=== PATIENT | male | born 1945 | race Two or more races ===

== ENCOUNTER 2025-03-19 13:12 | Inpatient (IN) | payer MEDICARE, OTHER ==
[~2025-03-19] VITALS: Ht 170.2 cm; Wt 66.7 kg
[2025-03-19 14:43] LABS: BASOPHILS # (AUTO) 0.1 K/uL (0.0-0.2); BASOPHILS % (AUTO) 0.8 % (0.0-2.0); EOSINOPHILS # (AUTO) 0.3 K/uL (0.0-0.7); EOSINOPHILS % (AUTO) 3.2 % (0.0-6.0); HEMATOCRIT 36 % (39-51); HEMOGLOBIN 11.5 g/dL (13.5-17.5); LYMPHOCYTES # (AUTO) 1.9 K/uL (0.8-4.8); LYMPHOCYTES % (AUTO) 17.5 % (20.0-44.0); MEAN CORPUSCULAR HEMOGLOBIN 30 PG (26.0-33.0); MEAN CORPUSCULAR HGB CONC 32 g/dl (31.0-36.0); MEAN CORPUSCULAR VOLUME 94 fL (80-96); MONOCYTES % (AUTO) 9.4 % (2.0-12.0); NEUTROPHILS # (AUTO) 7.4 K/uL (1.8-8.9); NEUTROPHILS % (AUTO) 69.1 % (43.0-81.0); PLATELET COUNT (AUTO) 93 K/uL (150-450); RED BLOOD CELL COUNT(AUTO) 3.81 MIL/uL (4.5-6.0); RED CELL DISTRIBUTION WIDTH 18.2 % (11.5-15.0); WHITE BLOOD COUNT (AUTO) 10.7 K/uL (4.3-11.0)
[2025-03-19 14:51] LABS: CALCIUM, SERUM 8.3 mg/dL (8.5-10.1); CARBON DIOXIDE 22 mmol/L (21-32); CHLORIDE 107 mmol/L (98-107); CREATININE 7.2 mg/dL (0.6-1.3); GLUCOSE 110 mg/dL (74-106); POTASSIUM 5.4 mmol/L (3.5-5.1); SODIUM SERUM 138 mmol/L (136-145)
[2025-03-19 14:53] LABS: UREA NITROGEN, BLOOD 82 mg/dL (7-18)
[2025-03-19] MEDS ORDERED: DONE10TA44 PO (15:05)
[2025-03-19] MEDS ORDERED: FOLI0.8T23 PO (15:05)
[2025-03-19] MEDS ORDERED: SENN-261 PO (15:05)
[2025-03-19] MEDS ORDERED: INSU100V7 SQ ×2 (15:05)
[2025-03-19] MEDS ORDERED: METO25TA6 PO (15:05)
[2025-03-19] MEDS ORDERED: TRAM50TA2 PO (15:05)
[2025-03-19] MEDS ORDERED: SACC250C9 PO (15:05)
[2025-03-19] MEDS ORDERED: LIDO5CRE7 TP (15:05)
[2025-03-19] MEDS ORDERED: ACET325T53 PO (15:05)
[2025-03-19] MEDS ORDERED: ATOR40TA PO (15:05)
[2025-03-19] MEDS ORDERED: APIX2.5T PO (15:05)
[2025-03-19] MEDS ORDERED: INSU100V39 SQ (15:05)
[2025-03-19] MEDS ORDERED: BUSP5TAB3 PO (15:05)
[2025-03-19] MEDS ORDERED: CITA20TA16 PO (15:05)
[2025-03-19] MEDS ORDERED: PREG200C59 PO (15:05)
[2025-03-19 17:10] LABS: NT-PRO BNP > 25000 pg/mL (0-125)
[2025-03-19] MEDS ORDERED: Z GUARD REMEDY 4 OZ OINT TP PRN (17:30)
[2025-03-19] MEDS ORDERED: ONDANSETRON HCL/PF 4 MG/2 ML VIAL IVP PRN (17:30)
[2025-03-19] MEDS ORDERED: ACETAMINOPHEN 325 MG TABLET PO PRN (18:00)
[2025-03-19] MEDS ORDERED: TRAMADOL HCL 50 MG TABLET PO PRN (18:00)
[2025-03-19 19:50] LABS: ANISOCYTOSIS 1+; BASOPHILS % (MANUAL) 1 % (0.0-2.0); EOSINOPHILS % (MANUAL) 1 % (0-4); LYMPHOCYTES % (MANUAL) 14 % (16-48); MONOCYTES % (MANUAL) 5 % (0-11.0); NEUTROPHILS % (MANUAL) 79 (42-76); PLATELET ESTIMATE DECREASED
[2025-03-19 19:51] LABS: OVALOCYTES 1+
[2025-03-19 20:00] VITALS: BP 178/71; TEMP 97.5; O2SAT 99
[2025-03-19] MEDS: CITALOPRAM HYDROBROMIDE 20 MG TABLET PO SCH (20:02)
[2025-03-19] MEDS: busPIRone 5 MG TABLET PO SCH (20:02)
[2025-03-19] MEDS: APIXABAN 2.5 MG TABLET PO SCH (20:04)
[2025-03-19] MEDS ORDERED: ALBUTEROL FS 2.5 MG/3 ML VIAL.NEB NEB PRN (22:30)
[2025-03-19] MEDS: ATORVASTATIN 40 MG TABLET PO SCH (22:52)
[2025-03-19] MEDS: DONEPEZIL 5 MG TABLET PO SCH (22:52)
[2025-03-19] MEDS: SENNOSIDES 8.6 MG TABLET PO SCH (22:53)
[2025-03-19] MEDS: ALBUTEROL FS 2.5 MG/3 ML VIAL.NEB NEB PRN (23:21)
[2025-03-19 23:22] VITALS: O2SAT 97
[2025-03-19 23:37] VITALS: O2SAT 99
[2025-03-19] MEDS: INSULIN GLARGINE, 100 UNIT/ML CARTRIDGE SQ SCH (23:41)
[2025-03-20] VITALS: BP 126/46; TEMP 98.1; O2SAT 96
[2025-03-20 04:00] VITALS: BP 128/54; TEMP 98.1; O2SAT 99
[2025-03-20 06:59] LABS: BASOPHILS % (AUTO) 0.4 % (0.0-2.0); EOSINOPHILS # (AUTO) 0.2 K/uL (0.0-0.7); HEMATOCRIT 36 % (39-51); HEMOGLOBIN 11.6 g/dL (13.5-17.5); LYMPHOCYTES # (AUTO) 1.4 K/uL (0.8-4.8); LYMPHOCYTES % (AUTO) 14.6 % (20.0-44.0); MEAN CORPUSCULAR HEMOGLOBIN 30 PG (26.0-33.0); MEAN CORPUSCULAR HGB CONC 32 g/dl (31.0-36.0); MEAN CORPUSCULAR VOLUME 93 fL (80-96); MONOCYTES # (AUTO) 0.9 K/uL (0.1-1.30); MONOCYTES % (AUTO) 8.8 % (2.0-12.0); NEUTROPHILS # (AUTO) 7.3 K/uL (1.8-8.9); NEUTROPHILS % (AUTO) 74.2 % (43.0-81.0); PLATELET COUNT (AUTO) 94 K/uL (150-450); RED BLOOD CELL COUNT(AUTO) 3.88 MIL/uL (4.5-6.0); RED CELL DISTRIBUTION WIDTH 17.8 % (11.5-15.0); WHITE BLOOD COUNT (AUTO) 9.8 K/uL (4.3-11.0)
[2025-03-20 07:05] LABS: CALCIUM, SERUM 8.1 mg/dL (8.5-10.1); MAGNESIUM 1.9 mg/dL (1.8-2.4); PHOSPHORUS 6.5 mg/dL (2.5-4.9)
[2025-03-20 07:22] LABS: CREATININE 7.1 mg/dL (0.6-1.3)
[2025-03-20 07:36] LABS: POTASSIUM 6.3 mmol/L (3.5-5.1)
[2025-03-20 08:00] VITALS: BP 146/57; TEMP 97.7; O2SAT 98
[2025-03-20] MEDS: PREGABALIN 100 MG CAPSULE PO SCH (08:12)
[2025-03-20] MEDS: METOPROLOL TARTRATE 25 MG TABLET PO SCH (08:13)
[2025-03-20] MEDS: INSULIN GLARGINE, 100 UNIT/ML CARTRIDGE SQ SCH (10:05)
[2025-03-20 10:44] LABS: EOSINOPHILS % (MANUAL) 3 % (0-4); LYMPHOCYTES % (MANUAL) 13 % (16-48); MONOCYTES % (MANUAL) 5 % (0-11.0); NEUTROPHILS % (MANUAL) 79 (42-76)
[2025-03-20 11:25] LABS: PLATELET ESTIMATE DECREASED
[2025-03-20] MEDS: SODIUM ZIRCONIUM CYCLOSILICATE 10 GM POWD.PACK PO ONE (11:49)
[2025-03-20 12:00] VITALS: BP 146/54; TEMP 97.5; O2SAT 98
[2025-03-20 16:00] VITALS: BP 160/48; TEMP 97.9; O2SAT 100
[2025-03-20 20:00] VITALS: BP 123/55; TEMP 97.9; O2SAT 98
[2025-03-21] VITALS: BP 132/49; TEMP 97.8; O2SAT 99
[2025-03-21 04:00] VITALS: BP 116/49; TEMP 97.3; O2SAT 99
[2025-03-21 08:00] VITALS: BP 111/68; TEMP 97.5; O2SAT 97
[2025-03-21 08:08] LABS: HEPATITIS B CORE AB, TOTAL Negative (Negative); HEPATITIS B SURFACE AB (QUAL) Reactive (.)
[2025-03-21] MEDS: DEXTROSE 50%-WATER 50 ML DISP.SYRIN IVP ONE (10:23)
[2025-03-21 12:00] VITALS: BP 111/68; TEMP 97.5; O2SAT 97
[2025-03-21 14:19] LABS: BILIRUBIN,TOTAL 1.3 mg/dL (0.2-1.0); CALCIUM, SERUM 7.8 mg/dL (8.5-10.1); CREATININE 6.1 mg/dL (0.6-1.3); PHOSPHORUS 6.2 mg/dL (2.5-4.9); POTASSIUM 4.2 mmol/L (3.5-5.1); TOTAL PROTEIN, SERUM 7.9 g/dL (6.4-8.2)
[2025-03-21 15:40] LABS: BASOPHILS # (AUTO) 0.1 K/uL (0.0-0.2); BASOPHILS % (AUTO) 0.6 % (0.0-2.0); EOSINOPHILS # (AUTO) 0.1 K/uL (0.0-0.7); EOSINOPHILS % (AUTO) 1.6 % (0.0-6.0); HEMATOCRIT 35 % (39-51); HEMOGLOBIN 11.5 g/dL (13.5-17.5); LYMPHOCYTES # (AUTO) 1.4 K/uL (0.8-4.8); LYMPHOCYTES % (AUTO) 15.6 % (20.0-44.0); MEAN CORPUSCULAR HEMOGLOBIN 30 PG (26.0-33.0); MEAN CORPUSCULAR HGB CONC 33 g/dl (31.0-36.0); MEAN CORPUSCULAR VOLUME 93 fL (80-96); MONOCYTES # (AUTO) 0.8 K/uL (0.1-1.30); MONOCYTES % (AUTO) 9.1 % (2.0-12.0); NEUTROPHILS # (AUTO) 6.6 K/uL (1.8-8.9); NEUTROPHILS % (AUTO) 73.1 % (43.0-81.0); PLATELET COUNT (AUTO) 80 K/uL (150-450); RED BLOOD CELL COUNT(AUTO) 3.81 MIL/uL (4.5-6.0); RED CELL DISTRIBUTION WIDTH 17.9 % (11.5-15.0); WHITE BLOOD COUNT (AUTO) 9.1 K/uL (4.3-11.0)
[2025-03-21 16:00] VITALS: BP 139/47; TEMP 97.3; O2SAT 98
[2025-03-21 18:02] LABS: NEUTROPHILS % (MANUAL) 76 (42-76)
[2025-03-21 18:03] LABS: EOSINOPHILS % (MANUAL) 3 % (0-4); LYMPHOCYTES % (MANUAL) 17 % (16-48); MONOCYTES % (MANUAL) 4 % (0-11.0); PLATELET ESTIMATE DECREASED
[2025-03-21 20:00] VITALS: BP 108/58; TEMP 98.1; O2SAT 99
[2025-03-21] MEDS: ACETAMINOPHEN 325 MG TABLET PO PRN (23:51)
[2025-03-22] VITALS: BP 121/66; TEMP 97.7; O2SAT 100
[2025-03-22] MEDS: MAG HYDROX/AL HYDROX/SIMETH 30 ML UDC PO PRN (03:44)
[2025-03-22 04:00] VITALS: BP 117/50; TEMP 97.5; O2SAT 100
[2025-03-22 08:00] VITALS: BP 123/55; TEMP 97.5; O2SAT 98
[2025-03-22 12:00] VITALS: BP 130/44; TEMP 97.5; O2SAT 100
[2025-03-22 16:00] VITALS: BP 141/42; TEMP 97.7; O2SAT 100
[2025-03-22 22:00] VITALS: BP 140/54; TEMP 97.7; O2SAT 100
[2025-03-23] VITALS: BP 126/53; TEMP 97.7; O2SAT 100
[2025-03-23 04:00] VITALS: BP 117/50; TEMP 97.7; O2SAT 100
[2025-03-23 08:00] VITALS: BP 118/66; TEMP 97.9; O2SAT 100
[2025-03-23 12:00] VITALS: BP 102/49; TEMP 97.6; O2SAT 100
[2025-03-23 16:00] VITALS: BP 127/68; TEMP 97.5; O2SAT 100
[2025-03-23 20:00] VITALS: BP 129/48; TEMP 97.7; O2SAT 100; O2SAT 99
[2025-03-23] MEDS: ZOLPIDEM TARTRATE 5 MG TABLET PO PRN (22:01)
[2025-03-24] VITALS: BP 132/52; TEMP 97.7; O2SAT 95
[2025-03-24 04:00] VITALS: BP 137/60; TEMP 98.2; O2SAT 99
[2025-03-24 07:22] LABS: BASOPHILS % (AUTO) 0.6 % (0.0-2.0); EOSINOPHILS # (AUTO) 0.3 K/uL (0.0-0.7); EOSINOPHILS % (AUTO) 3.5 % (0.0-6.0); HEMATOCRIT 37 % (39-51); LYMPHOCYTES # (AUTO) 1.8 K/uL (0.8-4.8); LYMPHOCYTES % (AUTO) 20.6 % (20.0-44.0); MEAN CORPUSCULAR HEMOGLOBIN 29 PG (26.0-33.0); MEAN CORPUSCULAR HGB CONC 32 g/dl (31.0-36.0); MEAN CORPUSCULAR VOLUME 92 fL (80-96); MONOCYTES # (AUTO) 0.9 K/uL (0.1-1.30); MONOCYTES % (AUTO) 9.9 % (2.0-12.0); NEUTROPHILS # (AUTO) 5.7 K/uL (1.8-8.9); NEUTROPHILS % (AUTO) 65.4 % (43.0-81.0); PLATELET COUNT (AUTO) 65 K/uL (150-450); RED BLOOD CELL COUNT(AUTO) 4.07 MIL/uL (4.5-6.0); RED CELL DISTRIBUTION WIDTH 17.4 % (11.5-15.0); WHITE BLOOD COUNT (AUTO) 8.7 K/uL (4.3-11.0)
[2025-03-24 07:57] LABS: CALCIUM, SERUM 7.6 mg/dL (8.5-10.1); POTASSIUM 4.2 mmol/L (3.5-5.1); TOTAL PROTEIN, SERUM 7.9 g/dL (6.4-8.2)
[2025-03-24 08:00] VITALS: BP 131/59; TEMP 98.3; O2SAT 98
[2025-03-24 10:19] LABS: EOSINOPHILS % (MANUAL) 2 % (0-4); LYMPHOCYTES % (MANUAL) 20 % (16-48); MONOCYTES % (MANUAL) 6 % (0-11.0); NEUTROPHILS % (MANUAL) 72 (42-76); PLATELET ESTIMATE DECREASED
[2025-03-24] MEDS: SEVELAMER CARBONATE 800 MG TABLET PO SCH (12:53)
[2025-03-24 16:00] VITALS: BP 129/65; TEMP 97.9; O2SAT 99
== END 2025-03-24 16:39 | DRG 640 ==
LOC: ER 13:19 → TELE1 17:09 → MEDSG1 03-24 08:55
PROVIDERS: ADMIT Internal Medicine; ATTEND Nurse Practitioner Acute Care
PROC: 5A1D70Z Performance of Urinary Filtration, Intermittent, Less than 6 Hours Per Day (ICD-10-PCS; principal; 2025-03-20)
DX: E87.5 Hyperkalemia (principal); N18.6 End stage renal disease; I13.2 Hypertensive heart and chronic kidney disease with heart failure and with stage 5 chronic kidney disease, or end stage renal disease; D68.59 Other primary thrombophilia; I50.22 Chronic systolic (congestive) heart failure; I48.91 Unspecified atrial fibrillation; I25.10 Atherosclerotic heart disease of native coronary artery without angina pectoris; D64.9 Anemia, unspecified; E11.22 Type 2 diabetes mellitus with diabetic chronic kidney disease; Z95.810 Presence of automatic (implantable) cardiac defibrillator; Z99.2 Dependence on renal dialysis; E78.5 Hyperlipidemia, unspecified; I70.0 Atherosclerosis of aorta; E87.1 Hypo-osmolality and hyponatremia; E11.51 Type 2 diabetes mellitus with diabetic peripheral angiopathy without gangrene; I25.2 Old myocardial infarction; M89.8X9 Other specified disorders of bone, unspecified site; Z79.01 Long term (current) use of anticoagulants; Z79.4 Long term (current) use of insulin; Z79.899 Other long term (current) drug therapy; R26.9 Unspecified abnormalities of gait and mobility; F32.A Depression, unspecified; F39 Unspecified mood [affective] disorder; Z91.158 Patient's noncompliance with renal dialysis for other reason
CPT/HCPCS: 36415; 71045-TC; 80048-TC; 80053-TC; 82962-TC; 83735-TC; 83880; 84100-TC; 85025-TC; 86704; 86706; 87081-TC; 87340; 93307-TC; 94760-TC; 94799-TC; G0378; J1815; J7030

== ENCOUNTER 2025-04-11 15:05 | Emergency (ER) | payer MEDICARE, OTHER ==
[~2025-04-11] VITALS: Ht 170.2 cm; Wt 73.5 kg
[~2025-04-11 15:05] MED LIST: ACET325T53 PO; APIX2.5T PO; ATOR40TA PO; BUSP5TAB3 PO; CITA20TA16 PO; DONE10TA44 PO; FOLI0.8T23 PO; INSU100V39 SQ; INSU100V7 SQ; LIDO5CRE7 TP; METO25TA6 PO; PREG200C59 PO; SACC250C9 PO; SENN-261 PO; TRAM50TA2 PO
[2025-04-11 16:02] LABS: CALCIUM, SERUM 8.3 mg/dL (8.5-10.1); CREATININE 5.4 mg/dL (0.6-1.3); POTASSIUM 4.4 mmol/L (3.5-5.1)
[2025-04-11 16:05] LABS: BASOPHILS # (AUTO) 0.1 K/uL (0.0-0.2); BASOPHILS % (AUTO) 0.6 % (0.0-2.0); EOSINOPHILS # (AUTO) 0.2 K/uL (0.0-0.7); HEMATOCRIT 40 % (39-51); HEMOGLOBIN 13.3 g/dL (13.5-17.5); LYMPHOCYTES % (AUTO) 18.9 % (20.0-44.0); MEAN CORPUSCULAR HEMOGLOBIN 31 PG (26.0-33.0); MEAN CORPUSCULAR HGB CONC 33 g/dl (31.0-36.0); MEAN CORPUSCULAR VOLUME 92 fL (80-96); MONOCYTES # (AUTO) 1.1 K/uL (0.1-1.30); MONOCYTES % (AUTO) 10.4 % (2.0-12.0); NEUTROPHILS # (AUTO) 7.3 K/uL (1.8-8.9); NEUTROPHILS % (AUTO) 68.1 % (43.0-81.0); PLATELET COUNT (AUTO) 160 K/uL (150-450); RED BLOOD CELL COUNT(AUTO) 4.33 MIL/uL (4.5-6.0); RED CELL DISTRIBUTION WIDTH 17.4 % (11.5-15.0); WHITE BLOOD COUNT (AUTO) 10.8 K/uL (4.3-11.0)
[2025-04-11 16:09] LABS: ALBUMIN 3.4 g/dL (3.4-5.0); BILIRUBIN,DIRECT 0.3 mg/dL (0.0-0.2); TOTAL PROTEIN, SERUM 8.3 g/dL (6.4-8.2)
[2025-04-11 19:08] VITALS: BP 133/65; TEMP 98.6; O2SAT 99
== END 2025-04-11 19:09 | disposition home or self-care (01) ==
LOC: ER 15:10
DX: N18.6 End stage renal disease (principal); I12.0 Hypertensive chronic kidney disease with stage 5 chronic kidney disease or end stage renal disease; E11.22 Type 2 diabetes mellitus with diabetic chronic kidney disease; F32.A Depression, unspecified; Z79.01 Long term (current) use of anticoagulants; Z79.899 Other long term (current) drug therapy; Z99.2 Dependence on renal dialysis
CPT/HCPCS: 36415; 80048-TC; 80076-TC; 85025-TC